=== PATIENT | male | born 2000 | race Caucasian/White ===

== ENCOUNTER → 2022-05-30 | Outpatient (CLI) | payer BC ==
[2022-06-01 02:07] LABS: CHLAMYDIA TRACHOMATIS, NAA Negative (Negative)
== END | disposition home or self-care (01) ==
LOC: LAB SHORT 14:09
PROVIDERS: Nurse Practitioner Family
DX: Z72.51 High risk heterosexual behavior (principal)
CPT/HCPCS: 87491; 87591

== ENCOUNTER → 2024-07-09 | Outpatient (CLI) | payer OTHER | LOC: LAB 18:02 → LAB SHORT 18:02 | DX: L08.1 Erythrasma (principal); B35.3 Tinea pedis | CPT/HCPCS: 87102; 87220 ==